=== PATIENT | male | born 1995 | race Hispanic/Latino ===

== ENCOUNTER 2021-05-08 20:23 | Emergency (ER) | payer SELFPAY ==
[2021-05-08] MEDS ORDERED: Lidocaine 1% w/Epinephrine 1:100K 20 ML VIAL ONE (22:32)
[2021-05-08] MEDS ORDERED: Lidocaine 1% (PF) 30 ML VIAL ONE (22:32)
[2021-05-08] MEDS ORDERED: Boostrix 0.5 ML (Tdap) VIAL ONE (22:32)
[2021-05-08] MEDS ORDERED: Ketorolac Tromethamine 30 MG/ML VIAL ONE (22:32)
== END 2021-05-08 23:52 | disposition home or self-care (01) ==
LOC: ERS 20:23
DX: S61.011A Laceration without foreign body of right thumb without damage to nail, initial encounter (principal); W22.8XXA Striking against or struck by other objects, initial encounter
CPT/HCPCS: 12001; 90471; 90715; 96372; J1885; J2001